=== PATIENT | male | born 1970 | race Caucasian/White ===

== ENCOUNTER 2019-06-10 13:19 | Emergency (ER) | payer SELFPAY ==
[~2019-06-10] VITALS: Ht 162.6 cm; Wt 81.8 kg
[2019-06-10] MEDS ORDERED: HYDROCODONE/ACETAMINOPHEN 5-325 MG TABLET PO ONE (14:45)
[2019-06-10] MEDS ORDERED: BUPIVACAINE HCL/PF 0.25% 10 ML VIAL INJ ONE (14:45)
[2019-06-10] MEDS ORDERED: IBUPROFEN 600 MG TABLET PO ONE (14:45)
[2019-06-10 16:37] VITALS: BP 136/78
== END 2019-06-10 17:02 | disposition home or self-care (01) ==
LOC: EMS 13:22
DX: L73.2 Hidradenitis suppurativa (principal); L02.412 Cutaneous abscess of left axilla
CPT/HCPCS: 10060; 99283; J3490